=== PATIENT | female | born 1945 | race Caucasian/White ===

== ENCOUNTER → 2017-10-18 | Outpatient (CLI) | payer MEDICARE, SELFPAY | PROVIDERS: Visit Provider Nurse Practitioner Family | DX: R53.83 Other fatigue (principal); E55.9 Vitamin D deficiency, unspecified; Z79.899 Other long term (current) drug therapy | CPT/HCPCS: 80053; 80061; 82306; 83036; 84439; 84443; 85025 ==

== ENCOUNTER → 2018-10-12 17:46 | Outpatient (CLI) | payer MEDICARE, SELFPAY ==
[2018-10-12 18:24] LABS: Basophils # 0.1 K/mm3 (0-0.2); Basophils % 0.7 % (0.1-2.0); Eosinophils # 0.4 K/mm3 (0.0-0.4); Eosinophils % 3.3 % (0.1-12.0); Hematocrit 48.6 % (37.0-47.0); Hemoglobin 16.5 g/dL (12.2-16.2); Lymphocytes # 2.5 K/mm3 (0.7-4.5); Mean Corpuscular HGB Conc 33.9 g/dL (31.8-35.4); Mean Corpuscular Hemoglobin 31.9 pg (27.0-31.2); Mean Corpuscular Volume 94.2 fl (81-99); Mean Platelet Volume 8.2 fl (7.4-10.4); Monocytes # 0.8 K/mm3 (0.1-1.0); Monocytes % 6.6 % (1.7-9.3); Neutrophils # 7.7 K/mm3 (1.8-7.8); Neutrophils % 67.2 % (37.0-80.0); Platelet Count 311 K/mm3 (142-424); Red Blood Count 5.16 M/mm3 (4.20-5.40); Red Cell Distribution Width 13.4 % (11.5-17.5); White Blood Count 11.5 K/mm3 (4.8-10.8)
[2018-10-12 18:42] LABS: Alanine Aminotransferase 28 U/L (12-78); Albumin Level 4.2 gm/dL (3.4-5.0); Albumin/Globulin Ratio 1.2 (1.1-1.8); Alkaline Phosphatase 103 U/L (46-116); Anion Gap 15.7 mEq/L (5-15); Aspartate Amino Transferase 16 U/L (15-37); Bilirubin,Total 0.8 mg/dL (0.2-1.0); Blood Urea Nitrogen 9 mg/dL (7-18); Calcium 9.6 mg/dL (8.5-10.1); Carbon Dioxide 26 mmol/L (21.0-32.0); Chloride 100 mmol/L (98-107); Cholesterol 132 mg/dL (140-200); Creatinine,Serum 0.72 mg/dL (0.55-1.02); Estimated Glomerular Filt Rate 80 ml/min (>60); Free T4 (Free Thyroxine) 1.07 ng/dl (0.76-1.46); GFR (African American) 97 ML/MIN (>60); Globulin 3.6 gm/dl (1.3-3.2); Glucose 113 mg/dL (74-106); HDL Cholesterol 65 mg/dL (29-89); LDL Cholesterol 44 mg/dL (0-130); Potassium 3.7 mmoL/L (3.5-5.1); Sodium 138 mmol/L (136-145); Thyroid Stimulating Hormone 2.45 uIU/ml (0.358-3.740); Total Protein,Serum 7.8 gm/dL (6.4-8.2); Triglycerides 113 mg/dL (30-200); VLDL Cholesterol 23 mg/dL (0-40)
[2018-10-14 18:37] LABS: Vitamin D 25 Hydroxy 51.1 ng/mL (30.0-100.0)
== END ==
PROVIDERS: Visit Provider Nurse Practitioner Family
DX: E78.5 Hyperlipidemia, unspecified (principal); R53.83 Other fatigue; E55.9 Vitamin D deficiency, unspecified
CPT/HCPCS: 80053; 80061; 82652; 84439; 84443; 85025

== ENCOUNTER → 2018-12-13 14:35 | Outpatient (CLI) | payer MEDICARE, SELFPAY ==
[2018-12-13 15:13] LABS: Basophils # 0.1 K/mm3 (0-0.2); Basophils % 0.7 % (0.1-2.0); Eosinophils # 0.4 K/mm3 (0.0-0.4); Eosinophils % 3.9 % (0.1-12.0); Hematocrit 45.1 % (37.0-47.0); Lymphocytes # 2.6 K/mm3 (0.7-4.5); Lymphocytes % 25.2 % (10-50); Mean Corpuscular HGB Conc 33.2 g/dL (31.8-35.4); Mean Corpuscular Hemoglobin 31.1 pg (27.0-31.2); Mean Corpuscular Volume 93.9 fl (81-99); Mean Platelet Volume 7.2 fl (7.4-10.4); Monocytes # 0.7 K/mm3 (0.1-1.0); Neutrophils # 6.4 K/mm3 (1.8-7.8); Neutrophils % 63.2 % (37.0-80.0); Platelet Count 317 K/mm3 (142-424); Red Cell Distribution Width 13.1 % (11.5-17.5); White Blood Count 10.2 K/mm3 (4.8-10.8)
== END ==
PROVIDERS: Visit Provider Nurse Practitioner Family
DX: D58.2 Other hemoglobinopathies (principal); D72.829 Elevated white blood cell count, unspecified; R71.8 Other abnormality of red blood cells
CPT/HCPCS: 36415; 85025

== ENCOUNTER → 2020-03-31 18:06 | Outpatient (CLI) | payer MEDICARE, SELFPAY ==
[2020-03-31 18:36] LABS: Basophils # 0.1 K/mm3 (0-0.2); Basophils % 1.2 % (0.1-2.0); Eosinophils # 0.4 K/mm3 (0.0-0.4); Eosinophils % 3.9 % (0.1-12.0); Hematocrit 44.1 % (37.0-47.0); Hemoglobin 14.9 g/dL (12.2-16.2); Lymphocytes # 2.4 K/mm3 (0.7-4.5); Lymphocytes % 22.4 % (10-50); Mean Corpuscular HGB Conc 33.7 g/dL (31.8-35.4); Mean Corpuscular Hemoglobin 32.2 pg (27.0-31.2); Mean Corpuscular Volume 95.7 fl (81-99); Mean Platelet Volume 8.7 fl (7.4-10.4); Monocytes # 0.6 K/mm3 (0.1-1.0); Monocytes % 5.8 % (1.7-9.3); Neutrophils # 7.2 K/mm3 (1.8-7.8); Neutrophils % 66.8 % (37.0-80.0); Platelet Count 331 K/mm3 (142-424); Red Blood Count 4.61 M/mm3 (4.20-5.40); Red Cell Distribution Width 13.7 % (11.5-17.5); White Blood Count 10.8 K/mm3 (4.8-10.8)
[2020-03-31 18:38] LABS: Chloride 102 mmol/L (98-107)
[2020-03-31 18:39] LABS: Potassium 4.1 mmoL/L (3.5-5.1); Sodium 135 mmol/L (136-145)
[2020-03-31 18:41] LABS: Alanine Aminotransferase 30 U/L (12-78); Alkaline Phosphatase 123 U/L (38-126); Anion Gap 13.1 mEq/L (5-15); Aspartate Amino Transferase 30 U/L (14-36); Bilirubin,Total 1.1 mg/dl (0.2-1.3); Blood Urea Nitrogen 10 mg/dl (7-17); Carbon Dioxide 24 mmol/L (22.0-30.0); Estimated Glomerular Filt Rate 98 ml/min (>60); GFR (African American) 119 ML/MIN (>60)
[2020-03-31 18:42] LABS: Albumin Level 4.2 g/dl (3.5-5.0); Albumin/Globulin Ratio 1.6 (1.1-1.8); Calcium 9.6 mg/dl (8.4-10.2); Chol/HDL Ratio 1.5 (1-3.5); Cholesterol 105 mg/dl (140-200); Globulin 2.7 g/dL (1.3-3.2); Glucose 123 mg/dl (74-100); HDL Cholesterol 68 mg/dl (40-60); Total Protein,Serum 6.9 g/dl (6.3-8.2); Triglycerides 64 mg/dl (30-150); VLDL Cholesterol 13 mg/dL (0-40)
[2020-03-31 18:53] LABS: Direct LDL Cholesterol 48.42 mg/dL (100-129)
[2020-03-31 18:59] LABS: T4 (Thyroxine) 11.5 ug/dl (5.53-11.0)
[2020-03-31 19:12] LABS: Thyroid Stimulating Hormone 3.78 uIU/mL (0.465-4.68)
[2020-04-01 12:14] LABS: Hemoglobin A1C 6.4 % (4.0-6.0)
== END ==
PROVIDERS: Visit Provider Physician Assistant
DX: I10 Essential (primary) hypertension (principal); R73.09 Other abnormal glucose
CPT/HCPCS: 80053; 80061; 82652; 83036; 84436; 84443; 85025

== ENCOUNTER 2020-04-14 18:03 | Emergency (ER) | payer MEDICARE, SELFPAY ==
[2020-04-14 18:05] VITALS: BP 179/73; PULSE 72; RESP 18; TEMP 36.7; O2SAT 97; BMI 22.4
--- NOTE | 2020-04-14 18:33 | CT_ITS ---
PROCEDURE: CT HEAD/BRAIN WO CON CLINICAL INDICATION: headache Headache with blurred vision COMPARISON: [facility] CT HEAD W/O CONTRAST from 03/22/2016 TECHNIQUE: Axial images obtained. All CT scans at the facility use one or more dose reduction, viz: automated exposure control, ma/kV adjustment per patient size (including targeted exams where dose is matched to indication, i.e. head), or iterative reconstruction technique. FINDINGS: No midline shift, mass effect, intracranial hemorrhage, hydrocephalus, or extra-axial fluid collection is evident. There is generalized atrophy with hypoattenuation of the periventricular white matter consistent with microangiopathic changes. The calvarium has an unremarkable appearance. There is minimal opacification of the right mastoid sinus inferiorly no sinus air-fluid level. IMPRESSION: No change with no acute intracranial findings Dictated by: Brain Chavis MD 04/15/2020 07:01 Electronically signed by Brain Chavis MD in [place] 04/15/2020 07:01
[2020-04-14 18:35] VITALS: BP 203/84; PULSE 65; RESP 18; O2SAT 95
--- NOTE | 2020-04-14 18:45 | HMH.EDGENADL ---
ED Disposition Clinical Impression: Left-sided headache Disposition: Home, Self-Care Condition on Discharge: Good Instructions: DI for Headache Additional Instructions: Tylenol for her headache. Additional instructions for HEADACHE: See your physician as soon as possible for further evaluation. Return immediately if worsening headache, vomiting, problems with vision or speech, fever, numbness or weakness of the extremities, neck pain or stiffness. Referrals: Jung Quiroz MD [Primary Care Provider] - - Critical Care Critical Care Time: No Attestation: On 04/14/20, the high probability of a clinically significant, sudden or life threatening deterioration of the following system(s) required my full and direct attention, intervention and personal management. The time I documented below is in addition to time spent performing reported procedures but includes the following listed in this critical care notation. Medical Decision Making - Medical Records Medical records reviewed: Yes: I reviewed the patient's medical records. - Jad Inquiry Pt receiving controlled substance: No Vital Signs: 04/14/20 18:05 04/14/20 18:35 04/14/20 19:05 Temperature 98.1 F Temperature Source Oral Pulse Rate [Radial] 72 65 60 Respiratory Rate 18 18 18 Blood Pressure [Right Arm] 179/73 H 203/84 H 157/66 H Blood Pressure Mean [Right Arm] 108 123 96 Blood Pressure Source [Right Arm] Automatic Cuff Blood Pressure Position [Right Arm] Sitting 02 Sat by Pulse Oximetry 97 95 95 Oxygen Delivery Method Room Air Room Air Room Air 04/14/20 19:49 Temperature Temperature Source Pulse Rate [Radial] 65 Respiratory Rate 16 Blood Pressure [Right Arm] 156/68 H Blood Pressure Mean [Right Arm] 97 Blood Pressure Source [Right Arm] Blood Pressure Position [Right Arm] 02 Sat by Pulse Oximetry 98 Oxygen Delivery Method Room Air - Lab Data Lab results reviewed: Yes: I reviewed the patient's lab results. Lab Results 04/14/20 18:58: WBC 11.0 H, RBC 4.71, Hgb 15.4, Hct 43.2, MCV 91.7, MCH 32.7 H, MCHC 35.7 H, RDW 13.5, Plt Count 298, MPV 7.3 L, Neut % (Auto) 71.9, Lymph % (Auto) 18.0, Door % (Auto) 5.9, Eos % (Auto) 3.6, Baso % (Auto) 0.6, Neut # (Auto) 7.9 H, Lymph # (Auto) 2.0, Door # (Auto) 0.7, Eos # (Auto) 0.4, Baso # (Auto) 0.1, ESR 22 04/14/20 18:58: Sodium 138, Potassium 3.7, Chloride 99, Carbon Dioxide 29, Anion Gap 13.7, BUN 10, Creatinine 0.60, Estimated Creat Clear 40, Estimated GFR 98, Est GFR ( Amer) 119, Glucose 114 H, Calcium 10.4 H, Total Bilirubin 0.9, AST 35, ALT 28, Alkaline Phosphatase 118, C-Reactive Protein 0.8, Total Protein 8.4 H, Albumin 5.0, Globulin 3.4 H, Albumin/Globulin Ratio 1.5 Result diagrams: 04/14/20 18:58 04/14/20 18:58 Orders (Tests/Meds): ORDERS Category Date Time Status CT head/brain wo con Stat Cat Scan 04/14/20 18:33 Taken - CT Data CT Scan: Head Time Received: 19:46 ([facility] fax) Findings Narrative: No evidence of acute intracranial abnormality. Intracranial atherosclerosis. Mild scattered mucosal thickening throughout the paranasal sinuses. - Physician Consults Physician Consulted: Gabriella - present Time: 20:03 Reason -: Pt condition Comment/Response: Follow-up in the office this week. No antibiotics needed. General Adult HPI - General Chief complaint: Headache Stated complaint: severe headaches dizzy Time Seen by Provider: 04/14/20 18:45 Mode of Arrival: Ambulatory Limitations: No Limitations Description of Symptoms (Recalled from ER Triage Doc. by RN): complaint of left sided headache that seems to not want to go away. States she has had some trouble with fluid on her ears. - History of Present Illness HPI narrative: Complains of pain in the left side of her head, occipital and periauricular, for 4 days. States it started last . No trauma. No fever. No new visual symptoms, but complains of chronic blurry vision. No numbness or w
[2020-04-14 19:05] VITALS: BP 157/66; PULSE 60; RESP 18; O2SAT 95
[2020-04-14 19:05] LABS: Basophils # 0.1 K/mm3 (0-0.2); Basophils % 0.6 % (0.1-2.0); Eosinophils # 0.4 K/mm3 (0.0-0.4); Eosinophils % 3.6 % (0.1-12.0); Hematocrit 43.2 % (37.0-47.0); Hemoglobin 15.4 g/dL (12.2-16.2); Mean Corpuscular HGB Conc 35.7 g/dL (31.8-35.4); Mean Corpuscular Hemoglobin 32.7 pg (27.0-31.2); Mean Corpuscular Volume 91.7 fl (81-99); Mean Platelet Volume 7.3 fl (7.4-10.4); Monocytes # 0.7 K/mm3 (0.1-1.0); Monocytes % 5.9 % (1.7-9.3); Neutrophils # 7.9 K/mm3 (1.8-7.8); Neutrophils % 71.9 % (37.0-80.0); Platelet Count 298 K/mm3 (142-424); Red Blood Count 4.71 M/mm3 (4.20-5.40); Red Cell Distribution Width 13.5 % (11.5-17.5)
[2020-04-14 19:12] LABS: Alanine Aminotransferase 28 U/L (12-78); Albumin/Globulin Ratio 1.5 (1.1-1.8); Alkaline Phosphatase 118 U/L (38-126); Anion Gap 13.7 mEq/L (5-15); Aspartate Amino Transferase 35 U/L (14-36); Bilirubin,Total 0.9 mg/dl (0.2-1.3); Blood Urea Nitrogen 10 mg/dl (7-17); Calcium 10.4 mg/dl (8.4-10.2); Carbon Dioxide 29 mmol/L (22.0-30.0); Chloride 99 mmol/L (98-107); Creatinine Clearance Estimated 40 mL/min (50-200); Estimated Glomerular Filt Rate 98 ml/min (>60); GFR (African American) 119 ML/MIN (>60); Globulin 3.4 g/dL (1.3-3.2); Glucose 114 mg/dl (74-100); Potassium 3.7 mmoL/L (3.5-5.1); Sodium 138 mmol/L (136-145); Total Protein,Serum 8.4 g/dl (6.3-8.2)
--- NOTE | 2020-04-14 19:15 | PC.NURSE ---
pt report received at this time
[2020-04-14 19:17] LABS: C-Reactive Protein 0.8 mg/L (0-4)
--- NOTE | 2020-04-14 19:46 | PC.NURSE ---
pt to rad
[2020-04-14 19:49] VITALS: BP 156/68; PULSE 65; RESP 16; O2SAT 98
[2020-04-14 20:00] LABS: Erythrocyte Sedimentation Rate 22 mm/hr (0-30)
[2020-04-14 20:18] VITALS: BP 154/63; PULSE 79; RESP 17; TEMP 36.7; O2SAT 98
== END 2020-04-14 20:21 | disposition home or self-care (01) ==
PROVIDERS: Emergency Provider Emergency Medicine; PCP Emergency Medicine
DX: R51 Headache (principal); I25.10 Atherosclerotic heart disease of native coronary artery without angina pectoris; E78.5 Hyperlipidemia, unspecified; I10 Essential (primary) hypertension; F17.210 Nicotine dependence, cigarettes, uncomplicated; Z90.49 Acquired absence of other specified parts of digestive tract; Z90.79 Acquired absence of other genital organ(s); Z79.899 Other long term (current) drug therapy; Z88.5 Allergy status to narcotic agent
CPT/HCPCS: 70450; 80053; 85025; 85651; 86140; 99283; 99284

== ENCOUNTER → 2022-01-20 17:00 | Outpatient (CLI) | payer MEDICARE, SELFPAY ==
[2022-01-20 20:26] LABS: Basophils # 0.1 K/mm3 (0-0.2); Basophils % 0.9 % (0.1-2.0); Eosinophils # 0.4 K/mm3 (0.0-0.4); Eosinophils % 3.5 % (0.1-12.0); Hematocrit 47.9 % (37.0-47.0); Hemoglobin 16.2 g/dL (12.2-16.2); Lymphocytes # 2.4 K/mm3 (0.7-4.5); Lymphocytes % 23.6 % (10-50); Mean Corpuscular HGB Conc 33.8 g/dL (31.8-35.4); Mean Corpuscular Hemoglobin 33.1 pg (27.0-31.2); Mean Corpuscular Volume 97.9 fl (81-99); Mean Platelet Volume 9.2 fl (7.4-10.4); Monocytes # 0.7 K/mm3 (0.1-1.0); Monocytes % 6.4 % (1.7-9.3); Neutrophils # 6.8 K/mm3 (1.8-7.8); Neutrophils % 65.6 % (37.0-80.0); Platelet Count 374 K/mm3 (142-424); Red Blood Count 4.89 M/mm3 (4.20-5.40); Red Cell Distribution Width 13.2 % (11.5-17.5); White Blood Count 10.4 K/mm3 (4.8-10.8)
[2022-01-20 20:41] LABS: Alanine Aminotransferase 23 U/L (12-78); Albumin Level 4.5 g/dl (3.5-5.0); Albumin/Globulin Ratio 1.7 (1.1-1.8); Alkaline Phosphatase 115 U/L (38-126); Anion Gap 14.2 mEq/L (5-15); Aspartate Amino Transferase 28 U/L (14-36); Bilirubin,Total 1.5 mg/dl (0.2-1.3); Blood Urea Nitrogen 10 mg/dl (7-17); Calcium 9.7 mg/dl (8.4-10.2); Carbon Dioxide 25 mmol/L (22.0-30.0); Chloride 99 mmol/L (98-107); Cholesterol 130 mg/dl (140-200); Estimated Glomerular Filt Rate 98 ml/min (>60); GFR (African American) 118 ML/MIN (>60); Globulin 2.6 g/dL (1.3-3.2); Glucose 126 mg/dl (74-100); HDL Cholesterol 66 mg/dl (40-60); Potassium 4.2 mmoL/L (3.5-5.1); Sodium 134 mmol/L (136-145); Total Protein,Serum 7.1 g/dl (6.3-8.2); Triglycerides 81 mg/dl (30-150); VLDL Cholesterol 16 mg/dL (0-40)
[2022-01-20 21:00] LABS: 25-OH Vitamin D, Total 52.9 ng/mL (30-100)
[2022-01-20 21:12] LABS: Thyroid Stimulating Hormone 3.28 uIU/mL (0.465-4.68)
[2022-01-21 11:49] LABS: Hemoglobin A1C 6.4 % (4.0-6.0)
== END ==
PROVIDERS: Visit Provider Physician Assistant
DX: I25.10 Atherosclerotic heart disease of native coronary artery without angina pectoris (principal); I10 Essential (primary) hypertension; E55.9 Vitamin D deficiency, unspecified; Z00.00 Encounter for general adult medical examination without abnormal findings; R73.9 Hyperglycemia, unspecified
CPT/HCPCS: 80053; 80061; 82306; 83036; 84443; 85025

== ENCOUNTER → 2022-01-21 17:00 | Outpatient (CLI) | payer MEDICARE, SELFPAY | PROVIDERS: Visit Provider Physician Assistant | DX: I25.10 Atherosclerotic heart disease of native coronary artery without angina pectoris (principal) ==

== ENCOUNTER → 2022-02-15 09:33 | Outpatient (CLI) | payer MEDICARE, SELFPAY ==
--- NOTE | 2022-02-15 09:34 | XR_ITS ---
FINAL REPORT TECHNIQUE: Bone densitometry calculations of the lumbar spine and left hip were obtained. CLINICAL HISTORY: . post menopausal screening FINDINGS: DEXA BONE DENSITY AXIAL SKELETON Using L1-4, the bone mineral density of the spine is 1.024 g/cm2, corresponding to T-score of -0.2. These values are likely of elevated secondary to hypertrophic change. Using the left hip, the bone mineral density of the femoral neck is 0.623 g/cm2, corresponding to a T-score of -2.6. NOTE: T-score: Standard deviation compared with peak bone mass of young adult mean. *Following the recommendations of the International Society of Bone Densitometry, classification of hip BMD is based on the lower of two T-scores; total hip or femoral neck. IMPRESSION: Osteoporosis: Lowest T-score is at or below -2.5. This patient's T-score meets the World Health Organization criteria for osteoporosis. Reviewed, Interpreted and Dictated by Jayce Hernandes III, MD Transcribed by June Curtis Authenticated by Jayce Hernandes III, MD on 02/15/2022 12:30:30 PM [facility]
== END ==
PROVIDERS: PCP Emergency Medicine; Visit Provider Physician Assistant
DX: Z78.0 Asymptomatic menopausal state (principal)
CPT/HCPCS: 77080

== ENCOUNTER → 2023-10-14 23:50 | Outpatient (CLI) | payer MEDICARE, SELFPAY ==
[2023-10-14 18:35] LABS: Alanine Aminotransferase 24 U/L (12-78); Albumin Level 4.2 g/dl (3.5-5.0); Albumin/Globulin Ratio 1.6 (1.1-1.8); Alkaline Phosphatase 94 U/L (38-126); Aspartate Amino Transferase 29 U/L (14-36); Blood Urea Nitrogen 11 mg/dl (7-17); Calcium 8.9 mg/dl (8.4-10.2); Carbon Dioxide 27 mmol/L (22.0-30.0); Chloride 98 mmol/L (98-107); Cholesterol 114 mg/dl (140-200); Estimated Glomerular Filt Rate 97 ml/min (>60); GFR (African American) 118 ML/MIN (>60); Globulin 2.7 g/dL (1.3-3.2); Glucose 96 mg/dl (74-100); Total Protein,Serum 6.9 g/dl (6.3-8.2); Triglycerides 81 mg/dl (30-150); VLDL Cholesterol 16 mg/dL (0-40)
[2023-10-14 18:36] LABS: Anion Gap 10.3 mEq/L (5-15); Chol/HDL Ratio 1.8 (1-3.5); HDL Cholesterol 64 mg/dl (40-60); Potassium 4.3 mmoL/L (3.5-5.1); Sodium 131 mmol/L (136-145)
[2023-10-14 18:42] LABS: Basophils # 0.1 K/mm3 (0-0.2); Basophils % 0.7 % (0.1-2.0); Eosinophils # 0.5 K/mm3 (0.0-0.4); Eosinophils % 4.3 % (0.1-12.0); Hemoglobin 14.7 g/dL (12.2-16.2); Lymphocytes # 2.3 K/mm3 (0.7-4.5); Mean Corpuscular HGB Conc 34.1 g/dL (31.8-35.4); Mean Corpuscular Hemoglobin 32.3 pg (27.0-31.2); Mean Corpuscular Volume 94.6 fl (81-99); Mean Platelet Volume 8.6 fl (7.4-10.4); Monocytes # 0.7 K/mm3 (0.1-1.0); Neutrophils # 6.9 K/mm3 (1.8-7.8); Platelet Count 309 K/mm3 (142-424); Red Blood Count 4.54 M/mm3 (4.20-5.40); Red Cell Distribution Width 13.9 % (11.5-17.5); White Blood Count 10.4 K/mm3 (4.8-10.8)
[2023-10-14 18:46] LABS: Direct LDL Cholesterol 47.32 mg/dL (100-129)
[2023-10-14 18:52] LABS: Free T4 (Free Thyroxine) 1.11 ng/dl (0.78-2.19)
[2023-10-14 19:06] LABS: Thyroid Stimulating Hormone 3.29 uIU/mL (0.465-4.68)
[2023-10-14 20:02] LABS: Hemoglobin A1C 6.2 % (4.0-6.0)
== END ==
PROVIDERS: PCP Physician Assistant; Visit Provider Internal Medicine
DX: I10 Essential (primary) hypertension (principal); Z13.29 Encounter for screening for other suspected endocrine disorder; Z13.220 Encounter for screening for lipoid disorders; Z00.00 Encounter for general adult medical examination without abnormal findings; R73.03 Prediabetes
CPT/HCPCS: 80053; 80061; 83036; 84439; 84443; 85025

== ENCOUNTER 2023-12-06 12:44 | Outpatient (CLI) | payer MEDICARE, SELFPAY ==
[2023-12-06 13:40] VITALS: PULSE 69; PULSE 78
[2023-12-06] MEDS: ALBUTEROL 0.083% 2.5 MG/3 ML NEB IH (13:40)
== END 2023-12-06 23:59 ==
LOC: RT 12:44
PROVIDERS: PCP Internal Medicine; Visit Provider Internal Medicine
DX: J44.9 Chronic obstructive pulmonary disease, unspecified (principal)
CPT/HCPCS: 94060; 94618; 94640; 94727; 94729

== ENCOUNTER 2023-12-22 12:03 | Emergency (ER) | payer MEDICARE, SELFPAY ==
[2023-12-22 12:04] VITALS: BP 169/65; PULSE 57; RESP 16; TEMP 36.7; O2SAT 97; BMI 25.3
[2023-12-22 12:15] VITALS: BP 169/65; PULSE 64; O2SAT 95
--- NOTE | 2023-12-22 12:55 | PC.NURSE ---
AND SIGRID AT BS MD DOING EXAM
[2023-12-22 13:00] VITALS: BP 145/108; PULSE 57; O2SAT 97
--- NOTE | 2023-12-22 13:00 | PC.NURSE ---
assisted with rectal exam
[2023-12-22 13:02] VITALS: BP 154/117; PULSE 54; O2SAT 97
--- NOTE | 2023-12-22 13:32 | HMH.EDGENADL ---
Discharge Plan Disposition Patient Disposition: Home, Self-Care Condition: Good Prescriptions Prescriptions: New hydrocortisone acetate [Anusol-HC] 25 mg suppository 25 mg ID HS 21 Days Qty: 24 0RF No Action cholecalciferol (vitamin D3) 50 mcg (2,000 unit) capsule 50 mcg PO DAILY levocetirizine 5 mg tablet 5 mg PO DAILY Qty: 30 2RF atorvastatin 80 mg tablet 80 mg PO DAILY bisoprolol fumarate 5 mg tablet 5 mg PO DAILY clopidogrel 75 mg tablet 75 mg PO DAILY lisinopril 5 mg tablet 5 mg PO DAILY fluticasone propionate [Allergy Relief (fluticasone)] 50 mcg/actuation spray,suspension 1 spray intranasal BID (DME) blood-glucose meter [Advanced Glucose Meter] Misc See Rx Instructions .Route Qty: 1 0RF Rx Instructions: Test sugar twice daily or As directed (DME) lancets [TRUEplus Lancets] 28 gauge misc See Rx Instructions .ROUTE .COMPLEX Qty: 200 0RF Dose Instruction: USE DIRECTED Rx Instructions: USE DIRECTED (DME) True Metrix Glucose Test Strip Strip See Rx Instructions .ROUTE .COMPLEX Qty: 200 0RF Dose Instruction: TEST SUGAR TWICE DAILY OR DIRECTED Rx Instructions: TEST SUGAR TWICE DAILY OR DIRECTED Referrals Follow up/Referrals: Tonia Chanel DO [Primary Care Provider] - See instructions Jayce Richard MD [Staff Physician] - See instructions Grover Thompson MD [Staff Physician] - See instructions Activity Restrictions/Add. Instructions Additional Instructions/Restrictions: You were evaluated in the emergency department today. We feel that your symptoms are related to hemorrhoids. Please sampler pickup your prescription for suppositories and take as prescribed. Take Tylenol and ibuprofen at home as needed for pain. Follow-up closely with your primary care provider. I also recommend follow-up with general surgery if you continue to have issues with your bowels and hemorrhoids. Please see attached instructions. Clinical Impressions Clinical Impression: Bleeding hemorrhoids Instructions Patient Instructions: DI for Hemorrhoids Discharge ED Provider: Bhakti Weiss General Adult HPI General Chief complaint: PAIN Stated complaint: bowl obstruction poss Time Seen by Provider: 12/22/23 12:14 Mode of Arrival: Ambulatory Source of Information: Patient Limitations: No Limitations Description of Symptoms (Recalled from ER Triage Doc. by RN): pt presents to ED c/o a knot around her rectal area that is bleeding. pt states she has a hx of hemmrhoids. pt states she has had a bowel movement yesterday and this date. History of Present Illness HPI narrative: This patient is a 78-year-old female with a history of chronic diarrhea and hemorrhoids presenting to the emergency department for evaluation with concern for a knot around her rectum. Patient states that she was having a hard time having a bowel movement this morning, so she sat on the toilet straining for a long time. She was straining really hard whenever she felt pain and bulging in her rectum. She notes that she looked in the mirror and saw a red knot. She did not know if it was a hemorrhoid or if something inside of her was falling out. She states that upon arrival here, she did have a very large bowel movement which made her feel much better. The swelling has actually gone down. No other concerns noted. Related Data Home Medications Medication Instructions Recorded Confirmed atorvastatin 80 mg tablet 80 mg PO DAILY 12/01/23 12/01/23 bisoprolol fumarate 5 mg tablet 5 mg PO DAILY 12/01/23 12/01/23 cholecalciferol (vitamin D3) 50 50 mcg PO DAILY 12/01/23 12/01/23 mcg (2,000 unit) capsule clopidogrel 75 mg tablet 75 mg PO DAILY 12/01/23 12/01/23 fluticasone propionate 50 1 spray intranasal BID 12/01/23 12/01/23 mcg/actuation nasal spray,suspension (Allergy Relief (fluticasone)) lisinopril 5 mg tablet 5 mg PO DAILY 12/01/23 12/01/23 Previous Rx's Medication Instructions Recorded blood-glucose meter (Advanced #1 ea 02/16/22 Glucose Meter) lancets 28 gauge (TRUEplus Lancets) #200 ea 04/06/23 blood sugar diagnostic (True #200 strips 10/13/23 Metrix Glucose Test Strip) levocetirizine 5 mg tablet 5 mg PO DAILY #30 tabs 12/01/23 hydrocortisone acetate 25 mg 25 mg ID HS 3 weeks #24 ea 12/22/23 rectal suppository (Anusol-HC) Allergies Allergy/AdvReac Type Severity Reaction Status Date / Time codeine AdvReac Mild VOMITING Verified 12/01/23 14:11 [facility] Disclaimer: The information contained in this section may have been updated after the patient was seen, as this information can be updated by other users. Medical History Hyperlipidemia Social History Smoking Status: Current every day smoker tobacco type: cigarettes packs per day: 1 second hand exposure: Yes alcohol intake: never substance use type: denies use current occupational status: other Travel in the last 8 weeks: None housing: house ROS Obtained: Yes All systems reviewed & no additional complaints except as documented Physical Exam General General appearance: alert and in no apparent distress Head Head exam: atraumatic and normocephalic Eye Eye exam: Present normal appearance, PERRL and EOMI ENT ENT exam: Present normal exam, normal oropharynx, mucous membranes moist and normal external ear exam Neck Neck exam: Present normal inspection, full ROM and trachea midline; Absent tenderness Chest Chest inspection: Present normal inspection and symmetric chest wall rise; Absent tenderness Respiratory Respiratory exam: Present normal lung sounds bilaterally; Absent respiratory distress, wheezes, stridor or accessory muscle use Cardiovascular Cardiovascular exam: Present regular rate and normal rhythm Abdominal Exam Abdominal exam: Present soft; Absent distention, tenderness or guarding Rectal Exam Rectal exam: Present hemorrhoids and tenderness Extremities Exam Extremities exam: Present normal inspection, full ROM and normal capillary refill; Absent tenderness or edema Back Exam Back exam: Present normal inspection and full ROM; Absent tenderness Neurological Exam Neurological exam: Present alert, oriented X3, CN II-XII intact and normal gait; Absent motor sensory deficit Psychiatric Psychiatric exam: Present normal affect and normal mood Skin Skin exam: Present warm and dry Medical Decision Making Medical Records Medical records reviewed: Yes I reviewed the patient's medical records. Jad Inquiry Pt receiving controlled substance: No Vital Signs: 12/22/23 12:04 12/22/23 12:15 12/22/23 13:00 Temperature 98.0 F Temperature Source Oral Pulse Rate 64 57 L Pulse Rate [Right Radial] 57 L Respiratory Rate 16 Blood Pressure 169/65 H 145/108 H Blood Pressure [Right Arm] 169/65 H Blood Pressure Mean 110 Blood Pressure Mean [Right Arm] 99 Blood Pressure Source [Right Arm] Automatic Cuff Blood Pressure Position [Right Arm] Sitting 02 Sat by Pulse Oximetry 97 95 97 Oxygen Delivery Method Room Air Room Air Room Air 12/22/23 13:02 Temperature Temperature Source Pulse Rate 54 L Pulse Rate [Right Radial] Respiratory Rate Blood Pressure 154/117 H Blood Pressure [Right Arm] Blood Pressure Mean Blood Pressure Mean [Right Arm] Blood Pressure Source [Right Arm] Blood Pressure Position [Right Arm] 02 Sat by Pulse Oximetry 97 Oxygen Delivery Method Room Air Lab Data Lab results reviewed: Yes I reviewed the patient's lab results. Medical Decision Narrative: In summary, this patient is a 78-year-old female presenting to the Emergency Department for evaluation of rectal pain and bulging. Differential diagnoses considered include but are not limited to hemorrhoids, rectal prolapse, anal fissure, fecal impaction. Ruling out the most morbid conditions drove assessment. On exam, the patient is well-appearing. She has hemorrhoids, but no large thrombosed hemorrhoids that would be amenable for bedside procedure. At this time based on reassuring history and exam, I do not feel labs or imaging are indicated as it would not tar heat exchanger cleaner. Patient to be appropriate for discharge with instructions for supportive management of hemorrhoids. She was given prescription for Anusol, instructions for supportive management, instructions for close follow-up with general surgery as well as her primary care provider if she continues to have issues. She was discharged with strict return precautions. Critical Care Critical Care Time Critical Care Time: No
[2023-12-22 14:15] VITALS: BP 136/65; PULSE 52; RESP 16; TEMP 36.6; O2SAT 95
== END 2023-12-22 14:04 | disposition home or self-care (01) ==
PROVIDERS: Emergency Provider Emergency Medicine; PCP Obstetrics & Gynecology
DX: K64.9 Unspecified hemorrhoids (principal); E78.5 Hyperlipidemia, unspecified; F17.210 Nicotine dependence, cigarettes, uncomplicated
CPT/HCPCS: 99283

== ENCOUNTER 2023-12-27 13:58 | Outpatient (CLI) | payer MEDICARE, SELFPAY ==
--- NOTE | 2023-12-27 13:58 | CT_ITS ---
FINAL REPORT TECHNIQUE: Axial images were obtained from the lung apex to the mid abdomen by computed tomography. This study was performed with techniques to keep radiation doses as low as reasonably achievable (ALARA). Individualized dose reduction techniques using automated exposure control or adjustment of mA and/or kV according to the patient's size were employed. CLINICAL HISTORY: lung cancer screening smoker 1 ppd x 56 years FINDINGS: CHEST CT LOW DOSE CTDI vol (mGy): 2.90 DLP (mGy-cm): 96.38 There is no axillary adenopathy. There is no hilar or mediastinal adenopathy. There is prominent coronary artery calcification. The heart is normal in size. There is no pericardial or pleural effusion. Note is made of granulomatous disease. There is a 3 mm subpleural left upper lobe nodule well seen on image 22. Limited images of the upper abdomen are unremarkable. IMPRESSION: Left upper lobe nodule. Lung RADS category 2S. Recommend 12 month follow-up low-dose chest CT. Modifier S: Coronary artery calcification. Reviewed, Interpreted and Dictated by Genesis Osborne MD Transcribed by Yuliana Rubio Authenticated and [facility]
== END 2023-12-27 23:59 ==
LOC: RAD 13:58
PROVIDERS: PCP Internal Medicine; Visit Provider Internal Medicine
DX: F17.218 Nicotine dependence, cigarettes, with other nicotine-induced disorders (principal); Z12.2 Encounter for screening for malignant neoplasm of respiratory organs
CPT/HCPCS: 71271

== ENCOUNTER 2024-09-19 15:09 | Outpatient (CLI) | payer MEDICARE, SELFPAY ==
[2024-09-19 17:17] LABS: Basophils # 0.1 K/mm3 (0-0.2); Basophils % 0.8 % (0.1-2.0); Eosinophils # 0.3 K/mm3 (0.0-0.4); Eosinophils % 2.7 % (0.1-12.0); Hematocrit 43.1 % (37.0-47.0); Hemoglobin 14.7 g/dL (12.2-16.2); Lymphocytes # 2.4 K/mm3 (0.7-4.5); Lymphocytes % 20.1 % (10-50); Mean Corpuscular HGB Conc 34.2 g/dL (31.8-35.4); Mean Corpuscular Volume 93.6 fl (81-99); Mean Platelet Volume 7.8 fl (7.4-10.4); Monocytes # 0.8 K/mm3 (0.1-1.0); Monocytes % 6.6 % (1.7-9.3); Neutrophils # 8.3 K/mm3 (1.8-7.8); Neutrophils % 69.9 % (37.0-80.0); Platelet Count 322 K/mm3 (142-424); Red Blood Count 4.61 M/mm3 (4.20-5.40); Red Cell Distribution Width 13.6 % (11.5-17.5); White Blood Count 11.9 K/mm3 (4.8-10.8)
[2024-09-19 17:21] LABS: Microalbumin/Creatinine Ratio 49.3
[2024-09-19 17:22] LABS: Creatinine,Urine Random 91 mg/dL (Not Estab.)
[2024-09-19 17:40] LABS: Alanine Aminotransferase 22 U/L (12-78); Albumin Level 4.4 g/dl (3.5-5.0); Alkaline Phosphatase 128 U/L (38-126); Anion Gap 14.3 mEq/L (5-15); Aspartate Amino Transferase 24 U/L (14-36); Bilirubin,Total 1.1 mg/dl (0.2-1.3); Blood Urea Nitrogen 8 mg/dl (7-17); Calcium 9.8 mg/dl (8.4-10.2); Carbon Dioxide 27 mmol/L (22.0-30.0); Chloride 97 mmol/L (98-107); Chol/HDL Ratio 1.8 (1-3.5); Cholesterol 113 mg/dl (140-200); Estimated Glomerular Filt Rate 97 ml/min (>60); GFR (African American) 117 ML/MIN (>60); Globulin 2.2 g/dL (1.3-3.2); Glucose 100 mg/dl (74-100); HDL Cholesterol 64 mg/dl (40-60); Potassium 4.3 mmoL/L (3.5-5.1); Sodium 134 mmol/L (136-145); Total Protein,Serum 6.6 g/dl (6.3-8.2); Triglycerides 72 mg/dl (30-150); VLDL Cholesterol 14 mg/dL (0-40)
[2024-09-19 17:54] LABS: Direct LDL Cholesterol 40.85 mg/dL (100-129)
[2024-09-19 18:34] LABS: HIV (1&2) Antibody Rapid NONREACTIVE (NONREACTIVE)
[2024-09-20 06:26] LABS: HCV Ab Non Reactive (Non Reactive)
== END 2024-09-19 23:59 | disposition home or self-care (01) ==
LOC: LAB.DROPOF 09-20 06:56
PROVIDERS: PCP Internal Medicine; Visit Provider Internal Medicine
DX: Z00.00 Encounter for general adult medical examination without abnormal findings (principal); E11.9 Type 2 diabetes mellitus without complications; R53.83 Other fatigue; E78.5 Hyperlipidemia, unspecified; Z13.220 Encounter for screening for lipoid disorders
CPT/HCPCS: 80053; 80061; 82043; 82570; 83036; 85025; 86803; 87389

== ENCOUNTER 2025-08-13 15:55 | Outpatient (CLI) | payer MEDICARE, SELFPAY ==
[2025-08-13 17:09] LABS: Microscopic, Urine URINE MICROSCOPIC (MICROSCOPIC)
[2025-08-13 17:56] LABS: Hematocrit 44.1 % (37.0-47.0); Hemoglobin 15.4 g/dL (12.2-16.2); Immature Granulocytes % 0.3 %; Mean Corpuscular HGB Conc 34.9 g/dL (31.8-35.4); Mean Corpuscular Hemoglobin 32.7 pg (27.0-31.2); Mean Corpuscular Volume 93.6 fl (81-99); Nucleated Red Blood Cells % 0 %; Platelet Count 336 K/mm3 (142-424); Red Blood Count 4.71 M/mm3 (4.20-5.40); Red Cell Distribution Width-SD 43.7 fL; White Blood Count 13.3 K/mm3 (4.8-10.8)
[2025-08-13 18:02] LABS: Hemoglobin A1C 5.9 % (4.0-6.0)
[2025-08-13 18:32] LABS: Alanine Aminotransferase 21 U/L (12-78); Albumin Level 4.6 g/dl (3.5-5.0); Albumin/Globulin Ratio 1.8 (1.1-1.8); Alkaline Phosphatase 130 U/L (38-126); Anion Gap 15.5 mEq/L (5-15); Aspartate Amino Transferase 25 U/L (14-36); Bilirubin,Total 1.4 mg/dl (0.2-1.3); Blood Urea Nitrogen 11 mg/dl (7-17); Calcium 9.9 mg/dl (8.4-10.2); Carbon Dioxide 27 mmol/L (22.0-30.0); Chloride 90 mmol/L (98-107); Cholesterol 127 mg/dl (140-200); Creatinine,Serum 0.70 mg/dl (0.52-1.04); Estimated Glomerular Filt Rate 81 ml/min (>60); GFR (African American) 98 ML/MIN (>60); Globulin 2.6 g/dL (1.3-3.2); Glucose 93 mg/dl (74-100); HDL Cholesterol 70 mg/dl (40-60); Magnesium 1.7 mg/dl (1.6-2.3); Potassium 4.5 mmoL/L (3.5-5.1); Sodium 128 mmol/L (136-145); Total Protein,Serum 7.2 g/dl (6.3-8.2); Triglycerides 104 mg/dl (30-150)
[2025-08-13 19:02] LABS: Thyroid Stimulating Hormone 2.19 uIU/mL (0.465-4.68)
[2025-08-13 19:21] LABS: Vitamin B12 504 pg/mL (239-931)
[2025-08-13 19:50] LABS: Bilirubin,Urine Negative (Negative); Color,Urine YELLOW (Yellow); Glucose,Urine (UA) Negative (Negative); Ketones,Urine Negative (Negative); Leukocyte Esterase,Urine 2+ (Negative); PH,Urine 5.5 (5.0-8.5); Protein,Urine Negative (Negative); Urobilinogen,Urine 0.2 EU/dl (0.2)
[2025-08-13 20:05] LABS: Specific Gravity, Urine 1.000 (1.005-1.030)
[2025-08-13 20:11] LABS: Bacteria,Urine 1+ /lpf; RBC,Urine Occasional #/hpf (0-3)
--- OUTSIDE RECORDS SUMMARY | 2025-08-15 09:15 | XMS_ITS ---
Author Organization Unknown TREATMENT PLAN [facility] Start Date Provider Encounter for Check-up [id number] [facility]
== END 2025-08-13 23:59 ==
LOC: LAB.DROPOF 08-15 09:06
PROVIDERS: PCP Nurse Practitioner Family; Visit Provider Nurse Practitioner Family
DX: E78.5 Hyperlipidemia, unspecified (principal); E11.9 Type 2 diabetes mellitus without complications; R41.3 Other amnesia
CPT/HCPCS: 80053; 80061; 81001; 82043; 82570; 82607; 83036; 83735; 84443; 85025; 87086

== ENCOUNTER 2025-09-18 16:26 | Outpatient (CLI) | payer MEDICARE, SELFPAY ==
--- NOTE | 2025-09-18 16:30 | XR_ITS ---
PROCEDURE INFORMATION: Exam: XR Cervical Spine Exam date and time: 09/18/2025 4:34 PM Age: 80 years old Clinical indication: Neck pain and other: Swelling w no injury TECHNIQUE: Imaging protocol: Radiologic exam of the cervical spine. Views: 2 or 3 views. COMPARISON: CT LUNG SCREENING 12/27/2023 2:13 PM FINDINGS: Bones/joints: Straightening of the normal cervical lordosis. posterior vertebral line and the spinal laminar line normal. odontoid process normal. no fracture. degenerative disc disease most pronounced C5-C6 and C6-C7 reflected as disk space narrowing and anterior osteophyte formation. Soft tissues: Unremarkable. IMPRESSION: 1. Straightening of the normal cervical lordosis. 2. Degenerative disc disease most pronounced C5-C6 and C6-C7 reflected as disk space narrowing and anterior osteophyte formation.
== END 2025-09-18 23:59 | disposition home or self-care (01) ==
LOC: RAD 16:27
PROVIDERS: PCP Internal Medicine; Visit Provider Student in an Organized Health Care Education/Training Program
DX: M53.82 Other specified dorsopathies, cervical region (principal); M50.322 Other cervical disc degeneration at C5-C6 level; M50.323 Other cervical disc degeneration at C6-C7 level; M25.78 Osteophyte, vertebrae
CPT/HCPCS: 72040